=== PATIENT | female | born 1940 | race Caucasian/White ===

== ENCOUNTER 2016-04-10 19:21 | Inpatient (IN) | payer OTHER, MEDICARE ==
[~2016-04-10] VITALS: Ht 162.6 cm; Wt 76.7 kg
[~2016-04-10 19:21] MED LIST: ADVAIR 250-501 EACH INH; ATORVASTATIN CA10 M1 PO; CIPRO500 M1 PO; ELIQUIS5 M1 PO; FERROUS SULFAT325 M3 PO; FLAGYL500 MG PO; LEVSIN0.125 M1 PO; LOMOTIL 2.5-0.1 EACH PO; LOPERAMIDE2 M2 PO; NORTRIPTYLINE H25 M2 PO; PANTOPRAZOLE SO40 M1 PO; PAXIL10 M1 PO; SPIRIVA18 MCG INH; SYMBICORT 16010.2 GM INH; VALSARTAN-HCTZ1 EAC4 PO; VENTOLIN HFA18 GM INH
--- NOTE | 2016-04-10 19:29 | NUR ---
RECEIVED 75 YO FEMALE WITH HX OF COPD C/O SHORTNESS OF BREATH, STARTED THIS AM, MUCH WORSE THIS EVENING. PT REPORTS COLD SYMPTOMS SINCE FRIDAY. NO C/O CP.
--- NOTE | 2016-04-10 19:33 | NUR ---
PT ALSO REPORTS NON PRODUCTIVE COUGH
--- NOTE | 2016-04-10 19:41 | ED DYSPNEA/ASTHMA COMPLAINT ---
History of Present Illness General Chief Complaint: General Adult Stated Complaint: PT HAVING PROBLEM BREATHING Source: patient Exam Limitations: no limitations Vital Signs & Intake/Output Vital Signs & Intake/Output Vital Signs Date Time Temp Pulse Resp B/P Pulse O2 O2 Flow FiO2 Ox Delivery Rate 04/11 0401 98.1 72 24 190/80 98 Nasal 2.0L Cannula 04/10 2140 97 Nasal 2.0L Cannula 04/10 2140 97.8 77 22 178/81 97 Room Air 04/10 1956 98 Nasal 2.0L Cannula 04/10 1932 97.6 83 22 190/94 98 Room Air ED Intake and Output 04/11 0000 04/10 1200 Intake Total Output Total Balance Patient 169 lb Weight Allergies Coded Allergies: amitriptyline (From ELAVIL) (RASH 07/13/15) methylprednisolone (From MEDROL) (LIP SWELLS 07/13/15) Triage Note: RECEIVED 75 YO FEMALE WITH HX OF COPD C/O SHORTNESS OF BREATH, STARTED THIS AM, MUCH WORSE THIS EVENING. PT REPORTS COLD SYMPTOMS SINCE FRIDAY. NO C/O CP. Triage Nurses Notes Reviewed? yes Onset: Abrupt Duration: day(s): (2) Timing: multiple episodes today Severity: severe Associated Symptoms: cough (NONPRODUCTIVE) HPI: 75 year old female with history of COPD and pulmonary embolism who presents to the ER with chief complaint of shortness of breath that started yesterday. Patient states that she used her nebulizer yesterday and today with minimal relief. Also has a history of pulmonary embolism 2. Last PE was in April 2015. She stop her anticoagulation in October. They thought that the PE was secondary to immobility after: Resection surgery. She denies any fever or chills. Complains of a nonproductive cough and some anxiety. Also complains of some chest tightness. (NELLY CHUN,PASTORA) Reconcile Medications Albuterol Sulfate (Ventolin Hfa) 18 GM HFA.AER.AD 2 PUF INH PRN COPD ( Reported) Atorvastatin Calcium 10 MG TABLET 0.5 TAB PO QAM CHOLESTEROL (Reported) Budesonide/Formoterol Fumarate (Symbicort 160-4.5 Mcg Inhaler) 10.2 GM HFA.AER.AD 2 PUF INH BID COPD (Reported) Diphenoxylate HCl/Atropine (Lomotil 2.5-0.025 MG Tablet) 1 EACH TABLET 2 TAB PO TIDAC DIARRHEA (Reported) Pantoprazole Sodium 40 MG TABLET.DR 1 TAB PO QAM GI (Reported) Tiotropium [place] (Spiriva) 18 MCG CAP.W.DEV 1 CAP INH DAILY COPD (Reported) Triamterene/Hydrochlorothiazid (Triamterene-Hctz 37.5-25 MG Tb) 37.5 MG-25 MG TABLET 0.5 TAB PO DAILY HTN (Reported) (MIKE CHUN,LEONOR Gonzalez) Past History Travel History Traveled to [place] past 21 day No Medical History Any Pertinent Medical History? 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 No (PASTORA VILLEGAS MD) Review of Systems Review of Systems Constitutional: Denies: chills, fever. EENTM: Reports: no symptoms. Respiratory: Reports: cough, short of breath. Denies: sputum production. Cardiovascular: Reports: chest pain. Denies: palpitations. GI: Denies: abdominal pain. Genitourinary: Reports: no symptoms. Musculoskeletal: Reports: no symptoms. Skin: Reports: no symptoms. Neurological/Psychological: Reports: anxiety. Hematologic/Endocrine: Denies: bruising, bleeding, polyuria, polydipsia. Immunologic/Allergic: Denies: splenectomy. All Other Systems: Reviewed and Negative (PASTORA VILLEGAS MD) Physical Exam Physical Exam General Appearance: well developed/nourished, alert, awake, anxious, moderate distress Head: atraumatic, normal appearance Ears, Nose, Throat: normal pharynx, normal ENT inspection, hearing grossly normal Neck: normal inspection Respiratory: decreased breath sounds, accessory muscle use, respiratory distress , clear chest Cardiovascular: regular rate/rhythm Peripheral Pulses: 2+ radial (R), 2+ radial (L) Gastrointestinal: normal bowel sounds, soft, non-tender Extremities: normal inspection, normal capillary refill, normal range of motion Neurologic/Psych: no motor/sensory deficits, awake, alert, oriented x 3, normal gait, VERY ANXIOUS Skin: intact, normal color, warm/dry Core Measures ACS in differential dx? No Severe Sepsis Present: No Septic Shock Present: No (NELLY CHUN,PASTORA) Progress Differential Diagnosis: bronchitis, CHF, COPD, pulmonary embolism, pneumonia Plan of Care: Orders Procedure Date/time Status Heart Healthy Diet 04/11 B Active CBC WITHOUT DIFFERENTIAL 04/11 06 Active BASIC ELECTROLYTES PLUS BUN&CR 04/11 06 Active Vital Signs 04/11 0352 Active Teach/Educate 04/11 035 Active Nutritional Intake, Monitor 04/11 035 Active Isolation 04/11 035 Active Intake & Output 04/11 035 Active Patient Care Conference 04/11 0352 Active Activity/Ambulation 04/11 0352 Active TRC EVALUATION (GEN) 04/11 0223 Active Pathway - chart 04/11 0217 Active Pathway - chart 04/11 0212 Active House Staff 04/11 0212 Active Code Status 04/11 0212 Complete Code Status 04/11 0212 Active Patient Data 04/11 0136 Active Saline Lock 04/11 0104 Active Misc Message 04/11 0104 Active ED Holding Orders 04/11 0104 Active Admit to inpatient 04/11 0104 Active Vital Signs 04/11 0104 Active Code Status 04/11 0104 Complete Add-on Test (ER Only) 04/11 0103 Active URINE OSMOLALITY 04/11 0103 Active URINE CREATININE, SPOT 04/11 0103 Active URINE LYTES, SPOT 04/11 0103 Active URINALYSIS 04/11 0103 Complete VTE Mechanical Prophylaxis 04/11 UNK Active Vital Signs 04/11 UNK Active Intake & Output 04/10 1955 Active SERUM OSMOLALITY 04/10 194 Complete D-DIMER 04/10 194 Complete RT ED ORDERS 04/10 1946 Active PARTIAL THROMBOPLASTIN TIME 04/10 1946 Complete PROTHROMBIN TIME 04/10 1946 Complete TROPONIN LEVEL 04/10 1936 Complete COMPREHENSIVE METABOLIC PANEL 04/10 1936 Complete CBC WITHOUT DIFFERENTIAL 04/10 1936 Complete EKG 04/10 1924 Active Current Medications Sig/Tacos Start time Last Medication Dose Stop Time Status Admin Atorvastatin Calcium 5 MG QAM 04/11 1000 AC (Lipitor) Budesonide/ 2 PUF BID 04/11 1000 AC Formoterol Fumarate (Symbicort) Enoxaparin Sodium 40 MG DAILY 04/11 1000 AC (Lovenox) Tiotropium [place] 1 PUF DAILY 04/11 1000 AC (Spiriva) Omeprazole 40 MG DAILY AC 04/11 0700 AC (Prilosec) Acetaminophen 650 MG Q6P PRN 04/11 0230 AC (Tylenol) Morphine Sulfate 2 MG Q4P PRN 04/11 0230 AC (Morphine) Oxycodone HCl 5 MG Q6P PRN 04/11 0230 AC (Roxicodone) Laboratory Tests 04/11/16224: Urine Color STRAW, Urine Clarity CLEAR, Urine pH 7.0, Ur Specific [place] <= 1.005, Urine Protein NEG, Urine Ketones NEG, Urine Nitrite NEG, Urine Bilirubin NEG, Urine Urobilinogen 0.2, Ur Leukocyte Esterase SMALL H, Ur Microscopic SEDIMENT EXAMINED, Urine RBC 5-10 H, Urine WBC 1-3 H, Ur Epithelial Cells FEW, Urine Hemoglobin SMALL H, Urine Glucose NEG 04/10/161947: Anion Gap 15, Estimated GFR > 60, BUN/Creatinine Ratio 17.8, Glucose 148 H, Serum Osmolality 263 L, Calcium 8.6, Total Bilirubin 0.6, AST 69 H, ALT 55 H, Alkaline Phosphatase 123, Troponin I < 0.01, Total Protein 7.3, Albumin 3.9, Globulin 3.4, Albumin/Globulin Ratio 1.1, PT 10.4, INR 0.99, APTT 26, D-Dimer 1042 H, CBC w Diff NO MAN DIFF REQ, RBC 4.19 L, MCV 87.9, MCH 30.7, RDW 13.8, MPV 8.0, Gran % 53.8, Lymphocytes % 26.9, Monocytes % 18.3 H, Eosinophils % 0.2 , Basophils % 0.8, Absolute Granulocytes 1.8, Absolute Lymphocytes 0.9 L, Absolute Monocytes 0.6, Absolute Eosinophils 0, Absolute Basophils 0, PUBS MCHC 35.0 04/10/161936: D-Dimer Cancelled Diagnostic Imaging: Viewed by Me: CT Scan. Discussed w/RAD: CT Scan. Radiology Impression: PATIENT: ANDRES CRYSTAL PRESENT AGE: 75 PATIENT ACCOUNT NO: [id number] : 42 LOCATION: [facility] ORDERING PHYSICIAN: PASTORA VILLEGAS MD SERVICE DATE: 04/10/16 EXAM TYPE: CAT - CTA CHEST-PULMONARY EMBOLISM EXAMINATION: CT ANGIOGRAM OF THE CHEST WITH AND WITHOUT CONTRAST (CT PULMONARY ANGIOGRAM FOR PE) CLINICAL INFORMATION: Symptoms: RESPIRATORY DISTRESS, H/O PE X 2, COMPARISON: Chest x-ray 07/13/2015 TECHNIQUE: Prior to contrast administration, noncontrast localization images were obtained. Subsequently, multidetector volumetric imaging was performed from the thoracic inlet to below the diaphragms following the administration of 95 mL Optiray 350 intravenous contrast. No contrast reaction reported Sagittal, coronal, and MIP oblique sagittal reformatted images were obtained on the CT workstation, uploaded to PACS, and reviewed. Total exam dose-length product 559.09 mGy-cm FINDINGS: QUALITY OF STUDY/CONTRAST BOLUS: Limited. The aorta, pulmonary veins, left atrium and left ventricle densely opacified with mild opacification of the pulmonary arteries. PULMONARY ARTERIES: No central or segmental pulmonary emboli. THORACIC AORTA: No aneurysm or dissection. LUNG: No focal consolidation, nodules or masses. PLEURA: No pleural effusion or pneumothorax. MEDIASTINUM: Normal heart size. No pericardial effusion. No hilar or mediastinal lymphadenopathy. No evidence of septal bowing or right heart strain. There is mild dilatation of the distal thoracic esophagus with air -fluid level. CHEST WALL/AXILLA: No axillary or internal mammary lymphadenopathy. OSSEOUS STRUCTURES: No acute or suspicious osseous abnormality. UPPER ABDOMEN: Surgical clips at the gastroesophageal junction. There is dilatation of the distal esophagus with air-fluid level. Status post cholecystectomy. At the lowest slice image there is herniation of small bowel loop into an incisional hernia at the ventral abdomen without bowel dilatation. This is only partially imaged however. IMPRESSION: 1. No acute change. No evidence of pulmonary embolism. 2. Status post surgery at the gastroesophageal junction with dilatation of the distal thoracic esophagus. 3. Incisional hernia containing small bowel loop in the lowest slice image is partially imaged. If there is abdominal pain imaging of the abdomen and pelvis would be helpful for further evaluation. VTE: Negative. DICTATED BY: CAHNEL HAMILTON MD DATE/TIME DICTATED:04/10/162144 CAPSULE INSPECTOR:AMBER DATE/TIME TRANSCRIBED:2144 CONFIDENTIAL, DO NOT COPY WITHOUT APPROPRIATE AUTHORIZATION. < Electronically signed in Other Vendor System> SIGNED BY: CHANEL HAMILTON MD 2200 Initial ED EKG: NSR Rhythm Strip: normal sinus rhythm Hand-Off Endorsed To: MIKE CHUN,LEONOR Gonzalez Endorsed Time: 2299 Pending: CT (NELLY CHUN,PASTORA) Radiology Impression: abd/pelvic - bowel loop present... no obstruction, ct angio of chest - no PE. Comments: PATIENT: ANDRES CRYSTAL PRESENT AGE: 75 PATIENT ACCOUNT NO: [id number] : 42 LOCATION: [facility] ORDERING PHYSICIAN: PASTORA VILLEGAS MD SERVICE DATE: 04/10/16 EXAM TYPE: CAT - CTA CHEST-PULMONARY EMBOLISM EXAMINATION: CT ANGIOGRAM OF THE CHEST WITH AND WITHOUT CONTRAST (CT PULMONARY ANGIOGRAM FOR PE) CLINICAL INFORMATION: Symptoms: RESPIRATORY DISTRESS, H/O PE X 2, COMPARISON: Chest x-ray 07/13/2015 TECHNIQUE: Prior to contrast administration, noncontrast localization images were obtained. Subsequently, multidetector volumetric imaging was performed from the thoracic inlet to below the diaphragms following the administration of 95 mL Optiray 350 intravenous contrast. No contrast reaction reported Sagittal, coronal, and MIP oblique sagittal reformatted images were obtained on the CT workstation, uploaded to PACS, and reviewed. Total exam dose-length product 559.09 mGy-cm FINDINGS: QUALITY OF STUDY/CONTRAST BOLUS: Limited. The aorta, pulmonary veins, left atrium and left ventricle densely opacified with mild opacification of the pulmonary arteries. PULMONARY ARTERIES: No central or segmental pulmonary emboli. THORACIC AORTA: No aneurysm or dissection. LUNG: No focal consolidation, nodules or masses. PLEURA: No pleural effusion or pneumothorax. MEDIASTINUM: Normal heart size. No pericardial effusion. No hilar or mediastinal lymphadenopathy. No evidence of septal bowing or right heart strain. There is mild dilatation of the distal thoracic esophagus with air-fluid level. CHEST WALL/AXILLA: No axillary or internal mammary lymphadenopathy. OSSEOUS STRUCTURES: No acute or suspicious osseous abnormality. UPPER ABDOMEN: Surgical clips at the gastroesophageal junction. There is dilatation of the distal esophagus with air-fluid level. Status post cholecystectomy. At the lowest slice image there is herniation of small bowel loop into an incisional hernia at the ventral abdomen without bowel dilatation. This is only partially imaged however. IMPRESSION: 1. No acute change. No evidence of pulmonary embolism. 2. Status post surgery at the gastroesophageal junction with dilatation of the distal thoracic esophagus. 3. Incisional hernia containing small bowel loop in the lowest slice image is partially imaged. If there is abdominal pain imaging of the abdomen and pelvis would be helpful for further evaluation. VTE: Negative. DICTATED BY: CHANEL HAMILTON MD DATE/TIME DICTATED:04/10/162144 CAPSULE INSPECTOR:AMBER DATE/TIME TRANSCRIBED:04/10/162144 CONFIDENTIAL, DO NOT COPY WITHOUT APPROPRIATE AUTHORIZATION. <Electronically signed in Other Vendor System> SIGNED BY: HCANEL HAMILTON MD 04/10/162200 PATIENT: ANDRES CRYSTAL PRESENT AGE: 75 PATIENT ACCOUNT NO: [id number] : 42 LOCATION: [facility] ORDERING PHYSICIAN: PASTORA VILLEGAS MD SERVICE DATE: 04/10/16 EXAM TYPE: CAT - CT ABD & PELVIS W/O IV CONTRAS EXAMINATION: CT ABDOMEN AND PELVIS WITHOUT CONTRAST CLINICAL INFORMATION: Dyspnea. Abdominal pain. Bowel seen in the incisional hernia on recent CTA of chest COMPARISON: CT abdomen pelvis 11/02/2015. CTA of chest today TECHNIQUE: Multidetector volumetric imaging was performed from the superior aspect of the liver through the pubic symphysis. Sagittal and coronal reformatted images were obtained on the technologist's workstation. DLP: 424.76 mGy-cm. FINDINGS: LUNG BASES: The visualized lung bases are unremarkable. LIVER, GALLBLADDER, AND BILIARY TREE: The liver is normal in size, shape, and attenuation. No focal hepatic lesion or biliary ductal dilatation is present. Status post cholecystectomy. Extrahepatic CBD measures 5 mm. PANCREAS: Unremarkable. SPLEEN: Unremarkable. ADRENAL GLANDS: Unremarkable. KIDNEYS AND URETERS: Parapelvic cyst measuring 2.3 cm the midpole of right kidney. Kidneys are normal in size and contour with normal enhancement. No hydronephrosis. BLADDER: Unremarkable. GASTROINTESTINAL TRACT: There is a midline surgical incision. There is a small bowel loop which bulges into the abdominal wall the level of the incision, sagittal image 60, axial image 220 (3). This does not however cause obstruction of the bowel loop. There is no bowel obstruction. No bowel wall thickening or edema. Surgical suture line at the right colon Large volume of stool in the colon. The appendix is not seen. No inflammation the mesentery. Surgical clips at the gastroesophageal junction. ABDOMINAL WALL: No significant hernia is appreciated. LYMPH NODES: Normal. VASCULAR: Unremarkable. PELVIC VISCERA: Uterus is absent. No adnexal abnormality. OSSEOUS STRUCTURES: Degenerative vacuum disc phenomena L4-L5 L5-S1. Bridging spurs at the lower thoracic spine. Multilevel facet joint arthrosis at lower lumbar spine. IMPRESSION: There is a midline surgical incision. There is a small bowel loop which does bulge into the abdominal wall at the level of the incision, however this does not herniate through the wall and does not cause obstruction of the bowel. DICTATED BY: CHANEL HAMILTON MD DATE/TIME DICTATED:04/10/162303 CAPSULE INSPECTOR:AMBER DATE/TIME TRANSCRIBED:04/10/162303 CONFIDENTIAL, DO NOT COPY WITHOUT APPROPRIATE AUTHORIZATION. <Electronically signed in Other Vendor System> SIGNED BY: CHANEL HAMILTON MD 04/10/16 [id number] (LEONOR MCKEON MD) Departure Departure Disposition: STILL A PATIENT Condition: Stable Referrals: RUY ROJAS MD (PCP/Family) Departure Forms: Customer Survey General Discharge Information (PASTORA VILLEGAS MD) Departure Clinical Impression Primary Impression: Dyspnea Secondary Impressions: Hyponatremia Admission Note Spoke With: BIN ADAMS MD Documentation of Exam: Documentation of any treatments & extenuating circumstances including Concerns Regarding Discharge (functional status, medication knowledge or non-compliance, living conditions, etc.) that warrant an admission rather than observation: pt with hyponatremia, merits iv fluids, electrolyte evaluation.. (possible siadh given normal bun/cr?). (LEONOR MCKEON MD) Critical Care Note Critical Care Note Critical Care Time: 30-74 min (PASTORA VILLEGAS MD)
--- NOTE | 2016-04-10 19:53 | NUR ---
PLACED ON SUPPLIMENTAL O2. LUNG SOUNDS CLEAR BILATERALLY. 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 HX PE LAST YEAR, NOT ON BLOOD THINNERS. DENIES RECENT REDNESS, SWELLING OR PAIN TO EXTREMITIES. DENIES PAIN WITH INSP/EXPIRATION. C/O LOW BACK PAIN. HX COPD AND FORMER SMOKER. 18G EST TO L HAND AND LABS DRAWN AND SENT. DR VILLEGAS AT BEDSIDE FOR EVAL
[2016-04-10 20:03] LABS: ABSOLUTE BASOPHIL COUNT 0 /CUMM (0.0-0.2); ABSOLUTE EOSINOPHIL COUNT 0 /CUMM (0.0-0.7); ABSOLUTE GRANULOCYTE CT 1.8 /CUMM (1.4-6.5); ABSOLUTE LYMPH COUNT 0.9 /CUMM (1.2-3.4); ABSOLUTE MONOCYTE COUNT 0.6 /CUMM (0.10-0.60); BASOPHIL % 0.8 % (0.0-2.0); EOSINOPHIL % 0.2 % (0-5); GRANULOCYTE % 53.8 % (42.2-75.2); HEMATOCRIT 36.8 % (37-47); MEAN CORPUSCULAR HGB 30.7 PG (27.0-31.0); MEAN CORPUSCULAR VOLUME 87.9 FL (81.0-99.0); PLATELET COUNT 133 /CUMM (130-400); RBC DISTRIBUTION WIDTH 13.8 % (11.5-14.5); RED BLOOD CELL CT 4.19 /CUMM (4.20-5.40); WHITE BLOOD CELL COUNT 3.3 /CUMM (4.8-10.8)
[2016-04-10 20:14] LABS: PT 10.4 SEC (9.4-12.5); PTT 26 SEC (25-37)
--- NOTE | 2016-04-10 21:10 | NUR ---
SECOND IV ESTABLISHED. MEDICATED WITH HEPARIN BOLUS PER eMAR AND MORPHINE PER ORDER. NS IVF BOLUS RUNNING
--- NOTE | 2016-04-10 21:36 | NUR ---
PT TO AND FROM CT VIA STRETCHER
--- NOTE | 2016-04-10 21:41 | NUR ---
PT TO AND FROM CAT SCAN
--- NOTE | 2016-04-10 22:01 | CT SCAN REPORT ---
EXAMINATION: CT ANGIOGRAM OF THE CHEST WITH AND WITHOUT CONTRAST (CT PULMONARY ANGIOGRAM FOR PE) CLINICAL INFORMATION: Symptoms: RESPIRATORY DISTRESS, H/O PE X 2, COMPARISON: Chest x-ray 07/13/2015 TECHNIQUE: Prior to contrast administration, noncontrast localization images were obtained. Subsequently, multidetector volumetric imaging was performed from the thoracic inlet to below the diaphragms following the administration of 95 mL Optiray 350 intravenous contrast. No contrast reaction reported Sagittal, coronal, and MIP oblique sagittal reformatted images were obtained on the CT workstation, uploaded to PACS, and reviewed. Total exam dose-length product 559.09 mGy-cm FINDINGS: QUALITY OF STUDY/CONTRAST BOLUS: Limited. The aorta, pulmonary veins, left atrium and left ventricle densely opacified with mild opacification of the pulmonary arteries. PULMONARY ARTERIES: No central or segmental pulmonary emboli. THORACIC AORTA: No aneurysm or dissection. LUNG: No focal consolidation, nodules or masses. PLEURA: No pleural effusion or pneumothorax. MEDIASTINUM: Normal heart size. No pericardial effusion. No hilar or mediastinal lymphadenopathy. No evidence of septal bowing or right heart strain. There is mild dilatation of the distal thoracic esophagus with air-fluid level. CHEST WALL/AXILLA: No axillary or internal mammary lymphadenopathy. OSSEOUS STRUCTURES: No acute or suspicious osseous abnormality. UPPER ABDOMEN: Surgical clips at the gastroesophageal junction. There is dilatation of the distal esophagus with air-fluid level. Status post cholecystectomy. At the lowest slice image there is herniation of small bowel loop into an incisional hernia at the ventral abdomen without bowel dilatation. This is only partially imaged however. IMPRESSION: 1. No acute change. No evidence of pulmonary embolism. 2. Status post surgery at the gastroesophageal junction with dilatation of the distal thoracic esophagus. 3. Incisional hernia containing small bowel loop in the lowest slice image is partially imaged. If there is abdominal pain imaging of the abdomen and pelvis would be helpful for further evaluation. VTE: Negative.
--- NOTE | 2016-04-10 23:16 | CT SCAN REPORT ---
EXAMINATION: CT ABDOMEN AND PELVIS WITHOUT CONTRAST CLINICAL INFORMATION: Dyspnea. Abdominal pain. Bowel seen in the incisional hernia on recent CTA of chest COMPARISON: CT abdomen pelvis 11/02/2015. CTA of chest today TECHNIQUE: Multidetector volumetric imaging was performed from the superior aspect of the liver through the pubic symphysis. Sagittal and coronal reformatted images were obtained on the technologist's workstation. DLP: 424.76 mGy-cm. FINDINGS: LUNG BASES: The visualized lung bases are unremarkable. LIVER, GALLBLADDER, AND BILIARY TREE: The liver is normal in size, shape, and attenuation. No focal hepatic lesion or biliary ductal dilatation is present. Status post cholecystectomy. Extrahepatic CBD measures 5 mm. PANCREAS: Unremarkable. SPLEEN: Unremarkable. ADRENAL GLANDS: Unremarkable. KIDNEYS AND URETERS: Parapelvic cyst measuring 2.3 cm the midpole of right kidney. Kidneys are normal in size and contour with normal enhancement. No hydronephrosis. BLADDER: Unremarkable. GASTROINTESTINAL TRACT: There is a midline surgical incision. There is a small bowel loop which bulges into the abdominal wall the level of the incision, sagittal image 60, axial image 220 (3). This does not however cause obstruction of the bowel loop. There is no bowel obstruction. No bowel wall thickening or edema. Surgical suture line at the right colon Large volume of stool in the colon. The appendix is not seen. No inflammation the mesentery. Surgical clips at the gastroesophageal junction. ABDOMINAL WALL: No significant hernia is appreciated. LYMPH NODES: Normal. VASCULAR: Unremarkable. PELVIC VISCERA: Uterus is absent. No adnexal abnormality. OSSEOUS STRUCTURES: Degenerative vacuum disc phenomena L4-L5 L5-S1. Bridging spurs at the lower thoracic spine. Multilevel facet joint arthrosis at lower lumbar spine. IMPRESSION: There is a midline surgical incision. There is a small bowel loop which does bulge into the abdominal wall at the level of the incision, however this does not herniate through the wall and does not cause obstruction of the bowel.
--- NOTE | 2016-04-11 01:20 | History & Physical ---
RON CHUN,DIEGO 04/11/16 0120: General Information and HPI MD Statement: I have seen and personally examined ANDRES CRYSTAL and documented this H&P. The patient is a 75 year old F who presented with a patient stated chief complaint of [Shortness of breath]. Source of Information: patient, old records, EMS Exam Limitations: no limitations History of Present Illness: Patient is a 75-year-old female with past medical history significant for COPD, pulmonary embolus twice, hypertension, hyperlipidemia, GERD, colon cancer, small bowel obstruction (status post colectomy twice in 02/2014, 04/2015) came to the ER today with progressively worsening shortness of breath. Patient had intermittent shortness of breath for the past couple of months. For the past 2 days she had cough and increased shortness of breath. She was prescribed Mucinex by her PCP which was partially helpful. However today her dyspnea got much worse, even after using albuterol inhaler thrice. Eventually she came to ER for further evaluation. In ER she reports feeling lightheaded and dizzy. Patient had chronic diarrhea after her colectomy in April 2015 with an average of 1-3 bowel movements per day. She has been drinking lots of water and Gatorade to compensate her fluid losses. Off note: Patient had pulmonary embolus twice in the past. Once in 1968 while she is on OCP. Second PE after colectomy in April 2015 which was most probably due to immobilization. She was started on Eliquis after the second PE which was recently stopped at the end of November 2015. Given history of PE today with suspected recurrent PE as she had d-dimer of 500s , however CD8, CT abdomen/pelvis are negative. Allergies/Medications Allergies: Coded Allergies: amitriptyline (From ELAVIL) (RASH 07/13/15) methylprednisolone (From MEDROL) (LIP SWELLS 07/13/15) Home Med list Albuterol Sulfate (Ventolin Hfa) 18 GM HFA.AER.AD 2 PUF INH PRN COPD ( Reported) Atorvastatin Calcium 10 MG TABLET 0.5 TAB PO QAM CHOLESTEROL (Reported) Budesonide/Formoterol Fumarate (Symbicort 160-4.5 Mcg Inhaler) 10.2 GM HFA.AER.AD 2 PUF INH BID COPD (Reported) Diphenoxylate HCl/Atropine (Lomotil 2.5-0.025 MG Tablet) 1 EACH TABLET 2 TAB PO TIDAC DIARRHEA (Reported) Pantoprazole Sodium 40 MG TABLET. 1 TAB PO QAM GI (Reported) Tiotropium [place] (Spiriva) 18 MCG CAP.W.DEV 1 CAP INH DAILY COPD (Reported) Triamterene/Hydrochlorothiazid (Triamterene-Hctz 37.5-25 MG Tb) 37.5 MG-25 MG TABLET 0.5 TAB PO DAILY HTN (Reported) Compliance With Home Meds: UNKNOWN Past History Travel History Traveled to [place] past 21 day No Medical History Neurological: NONE EENT: NONE Cardiovascular: hypertension, hyperlipidemia Respiratory: COPD, pulmonary embolism Gastrointestinal: GERD, colon cancer SBO Hepatic: NONE Renal: NONE Musculoskeletal: NONE Psychiatric: NONE Endocrine: NONE Blood Disorders: PE Cancer(s): COLON CA GANG SAWYER/Reproductive: NONE History of MRSA: No History of VRE: No History of CDIFF: No Surgical History Surgical History: colectomy, hysterectomy, cholecystectomy HIATAL HERNIA REPAIR ARTHROSCOPY OF KNEE BILATERAL CATARACTS CARPAL TUNNEL SURGERY COLON RESECTION 2015 Past Family/Social History Family History Relations & Conditions if any MOTHER FH: colon cancer FATHER FH: CAD (coronary artery disease) Psychosocial History Where do you live? Home Who Do You Live With? significant other Services at Home: None Smoking Status: Former Smoker ETOH Use: occasional use Illicit Drug Use: denies illicit drug use Living Will? yes Power of Pattern Painter/HCP? unknown Functional Ability ADLs Independent: dressing, eating, toileting, bathing. Ambulation: independent IADLs Independent: shopping, housework, finances, food prep, telephone, transportation , medication admin. Review of Systems Review of Systems Constitutional: Reports: see HPI, malaise, weakness. EENTM: Reports: see HPI. Respiratory: Reports: see HPI, cough, short of breath, sputum production. GI: Reports: see HPI, bloating, diarrhea. Genitourinary: Reports: no symptoms. Musculoskeletal: Reports: no symptoms. Skin: Reports: no symptoms. Neurological/Psychological: Reports: no symptoms. Hematologic/Endocrine: Reports: no symptoms. Immunologic/Allergic: Reports: no symptoms. All Other Systems: Reviewed and Negative Exam & Diagnostic Data Last 24 Hrs of Vital Signs/I&O Vital Signs Date Time Temp Pulse Resp B/P Pulse O2 O2 Flow FiO2 Ox Delivery Rate 01/19 0751 Nasal 2.0L Cannula 04/11 0748 98 Nasal 2.0L Cannula 04/11 0653 97.9 68 20 140/70 98 Nasal 2.0L Cannula 04/11 0417 72 24 190/80 04/11 0401 98.1 72 24 190/80 98 Nasal 2.0L Cannula 04/11 0343 98 Nasal 2.0L Cannula 04/10 2140 97 Nasal 2.0L Cannula 04/10 2140 97.8 77 22 178/81 97 Room Air 04/10 1956 98 Nasal 2.0L Cannula 04/10 1932 97.6 83 22 190/94 98 Room Air Intake & Output 04/11 1600 04/11 0800 04/11 0000 Intake Total 210 Output Total Balance 210 Intake, IV 10 Intake, Oral 200 Number 0 Bowel Movements Patient 76.657 kg 76.657 kg Weight Physical Exam General Appearance Alert, Oriented X3, Cooperative, Mild Distress Skin No Rashes, No Breakdown HEENT Atraumatic, PERRLA, EOMI Neck Supple, No JVD Cardiovascular Regular Rate, Normal S1, Normal S2, No Murmurs Lungs Clear to Auscultation, Normal Air Movement Abdomen Normal Bowel Sounds, No Tenderness, distended Neurological Normal Speech, Strength at 5/5 X4 Ext, Normal Tone Extremities No Clubbing, No Cyanosis, No Edema Vascular Pulses Symmetrical Last 24 Hrs of Labs/Mainor: Laboratory Tests 04/11/16224: Urine Color STRAW, Urine Clarity CLEAR, Urine pH 7.0, Ur Specific [place] <= 1.005, Urine Protein NEG, Urine Ketones NEG, Urine Nitrite NEG, Urine Bilirubin NEG, Urine Urobilinogen 0.2, Ur Leukocyte Esterase SMALL H, Ur Microscopic SEDIMENT EXAMINED, Urine RBC 5-10 H, Urine WBC 1-3 H, Ur Epithelial Cells FEW, Urine Hemoglobin SMALL H, Urine Glucose NEG 04/11/16224: Urine Osmolality 160 L, Ur Random Creatinine 14.2, Ur Random Sodium 36, Ur Random Potassium 8.9, Fraction Sodium Excret 1.9 H 04/10/161947: Anion Gap 15, Estimated GFR > 60, BUN/Creatinine Ratio 17.8, Glucose 148 H, Serum Osmolality 263 L, Calcium 8.6, Total Bilirubin 0.6, AST 69 H, ALT 55 H, Alkaline Phosphatase 123, Troponin I < 0.01, Total Protein 7.3, Albumin 3.9, Globulin 3.4, Albumin/Globulin Ratio 1.1, PT 10.4, INR 0.99, APTT 26, D-Dimer 1042 H, CBC w Diff NO MAN DIFF REQ, RBC 4.19 L, MCV 87.9, MCH 30.7, RDW 13.8, MPV 8.0, Gran % 53.8, Lymphocytes % 26.9, Monocytes % 18.3 H, Eosinophils % 0.2 , Basophils % 0.8, Absolute Granulocytes 1.8, Absolute Lymphocytes 0.9 L, Absolute Monocytes 0.6, Absolute Eosinophils 0, Absolute Basophils 0, PUBS MCHC 35.0 04/10/161936: D-Dimer Cancelled Diagnostic Data EKG Results normal sinus rhythm with heart rate of 80, normal axis, no acute ST-T wave changes, QTC of 471. Other Results CT angiogram IMPRESSION: 1. No acute change. No evidence of pulmonary embolism. 2. Status post surgery at the gastroesophageal junction with dilatation of the distal thoracic esophagus. 3. Incisional hernia containing small bowel loop in the lowest slice image is partially imaged. If there is abdominal pain imaging of the abdomen and pelvis would be helpful for further evaluation. VTE: Negative. Assessment/Plan Assessment: Patient is a 75-year-old female with past medical history significant for COPD, pulmonary embolus twice, hypertension, hyperlipidemia, GERD, colon cancer, small bowel obstruction (status post colectomy twice in 02/2014, 04/2015) came to the ER today with progressively worsening shortness of breath. Off note: Patient had pulmonary embolus twice in the past. Once in 1968 while she is on OCP. Second PE after colectomy in April 2015 which was most probably due to immobilization. She was started on Eliquis after the second PE which was recently stopped at the end of November 2015. ER course Vital signs Temperature max of 97.6, pulse 77, blood pressure 178/81 mmHg, on 2 L nasal cannula. Significant labs include Pancytopenia with white count of 3.3, H&H of 12.9/36.8, platelet count of 133 Hyponatremia with sodium of 121 Potassium 3.9, creatinine 0.9 CT abdomen and pelvis and CT chest negative for any PE Midline surgical incision with palpable penetration without any visible herniation patient received 1 L of normal saline bolus along with albuterol and ipratropium inhalers in the ER Admitted to general medicine floor Plan Hypovolemic hyponatremia in the setting of dehydration secondary to diarrhea and thiazide intake * Sodium level of 121 * Appears secondary to dehydration * Holding thiazide and gentle hydration * Continue IV fluids with normal saline @75ml/hr * Daily BEP with sodium monitoring * Consider nephro consult History of colon cancer underwent colectomy * Midline incision present * CT abdomen and pelvis shows bilateral penetration through the incision without any herniation * Chronic diarrhea status post colectomy * Consider surgery/GI consult as per primary team discussion pulmonary embolus * Negative CTA with d-dimer level of 1042 * History of pulmonary embolus twice in the past History of hypertension * On hydrochlorothiazide/triamterene combination at home * currently on hold in view of hyponatremia and dehydration * Consider amlodipine 5 mg for now Transaminitis * AST/ALT 69/55 * ALP normal * Repeat LFTs in the a.m. * Secondary to dehydration DVT prophylaxis * Subcutaneous Lovenox CODE STATUS * DNR/DNI As Ranked By This Provider Problem List: 1. Small bowel obstruction 2. HTN (hypertension) 3. Diarrhea 4. Dyspnea 5. Hyponatremia Core Measures/Miscellaneous Acute Coronary Syndrome ACS Diagnosis: No Cerebrovascular Accident CVA/TIA Diagnosis: No Congestive Heart Failure CHF Diagnosis: No Venous Thromboembolism VTE Risk Factors: Immobility, paresis VTE Prophylaxis Ordered Inpt: Pharm- Lovenox No Mech VTE prophylaxis d/t: No contraindications No VTE Pharm Prophylaxis d/t: No contraindications VTE Diagnosis: No VTE Type: NONE VTE Confirmed by (Test): NONE Severe Sepsis Severe Sepsis Present: No Septic Shock Septic Shock Present: No Miscellaneous Documentation Attending Case Discussed With: BIN ADAMS MD Primary Care Physician: RUY ROJAS MD Patient sees these Specialists None Level of Patient Care: General Medicine JINA CHAPMAN MD 04/11/16 0401: Resident Review Statement Resident Statement: examined this patient, discussed with internal affairs investigator, agreed with internal affairs investigator, reviewed EMR data (avail) (he is), discussed with nursing, reviewed images, amended to note Other Findings: This is 75 year female with past medical history of COPD not on home O2 or prednisone, hypertension, hyperlipidemia, PE 2 with most recent PE in April 2015 after she underwent surgery for colon cancer, history of SBO, colon cancer status post colectomy 2 in 02/2014 and 04/2015 was on anticoagulation Eliquis which was stopped in November 2015 after completing 6 months course of anticoagulation for provoked PE presented to ER with chief complaint of worsening shortness of breath for 1 day associated with lightheadedness. Patient has been having on and off shortness of breath for past few months which she attributed to her baseline COPD but for past 2 days her shortness of breath has progressed. She was evaluated by her PCP 2 days prior to admission for cold and dry cough and was prescribed codeine cough syrup and Mucinex which help her with cough symptoms. On the day of admission patient started getting more short of breath tried albuterol inhaler 3 times without any significant with chief and that point she decided to come to ER for further evaluation. She denies any fever, productive cough, sore throat, sick contacts, recent travel, chest pain, palpitation or any new medications. She has been having diarrhea since she had colectomy in April 2015 and has intermittent 2-3 watery bowel movement for past few months. She denies any change in diarrhea recently. Her vitals on admission were T 97.6, HR 83, RR 22, BP 190/94, O2 sat 97% on 2 L On physical exam patient is alert oriented 3 in no acute distress, noted hard of hearing, neck supple without JVD, HEENT PERRLA EOMI, and heart S1-S2 normal without murmur, lungs clear on auscultation, abdomen soft nontender nondistended with preserved bowel sounds, no focal neuro deficit. Labs revealed the previously 3.3, H&H 12.9/36.8, platelet 133, sodium 121 ( baseline sodium 135 in February 2016) K3.9, BUN 16, creatinine 0.9, serum osmolality 263, AST 69, ALT 55, negative troponin, INR 0.99, d-dimer 1042 CTA chest did not reveal any evidence of pulmonary embolism CT abdomen pelvis revealed small bowel loop bulge into the abdominal wall at the incision surgical site UA noted with small leukocyte esterase WBC of 23, RBC 5-10 Urine osmolarity pending EKG revealed normal sinus rhythm with heart rate of 80, normal axis, no acute ST -T wave changes, QTC of 471. Assessment: 1. Hyponatremia likely in setting of dehydration secondary to diarrhea and diuretic use 2. Hypertension 3. COPD Plan: Admit to general medicine floor Gentle IV hydration Hold diuretic Repeat sodium level in a.m. TRC Start amlodipine 5 mg daily for blood pressure control DVT prophylaxis with Lovenox Pain pathway DNR/DNI BIN ADAMS 04/11/16 0655: Attending MD Review Statement Attending Statement Attending MD Statement: examined this patient, discuss w/resident/PA/OCCUP THER, agreed w/resident/PA/OCCUP THER, reviewed EMR data (avail), reviewed images, amended to note Attending Assessment/Plan: CC: Shortness of breath since 2 days PMH: COPD, recurrent PE (patient stopped taking anticoagulation in October/ November 2015 for PE being provoked after surgery), HTN, HLD, GERD, colon cancer S/P colectomy Patient presented with acute worsening of shortness of breath for 2 day duration. She had wet cough without much sputum production, URI congestion. Patient has been using increased inhalation at home, Mucinex D, codeine without much relief. She denies any fever, chills, sick contacts, nausea, vomiting, loss of consciousness, chest pain, palpitations. Since her surgery, patient has been having chronic diarrhea, not increased in frequency recently. she gets 2-3 watery bowel movements every day, she had been taking Imodium for this diarrhea. Vitals: Afebrile, heart rate in 70s. Tachypneic with respiratory rate 22-24, hypertensive with blood pressure 190/90, saturating 98% on 2 L NC. On exam: A O Clear to auscultate. Abdomen: Midline incision, incisional hernia, bowel sounds present, no guarding rigidity. No dependent edema. No focal neurological deficit. Labs: Sodium decreased to 121 from 135 done in February 2016, bicarbonate 19, anion gap 15, AST 69, ALT 55, alkaline phosphatase 123 otherwise BMP and LFT unremarkable, UA positive for leukocyte esterase. D-dimer 1042. Troponin T less than 0.01. CT abdomen and pelvis and CT chest : Midline surgical incision, small bowel loop which does bulge in abdominal wall at the level of incision however no evidence of obstruction. No acute pulmonary changes, no evidence of pulmonary embolism, status post surgery as gastroesophageal junction with dilated distal thoracic esophagus A&P: #1 hyponatremia: This appears more euvolemic hyponatremia, urine studies won't be beneficial at this point as patient is on by mouth diuretic. Even though patient has history of chronic diarrhea, her recent sodium up till February was normal. ? SIADH versus volume loss in GI in addition to by mouth diuretic, try gentle hydration with normal saline at 75 per hour, repeat sodium in 4 hours, if trending up then continue hydration, if not then fluid restriction. Consult nephrology in a.m. #2 acute shortness of breath: CTA is negative for PE, no evidence of pneumonia, patient is afebrile, probably upper respiratory congestion, and terbutaline to mild COPD exacerbation, continue IV steroids, nebulization, Mucinex, nasal spray saline, O2 by nasal cannula if required. #3 HTN: d/c hctz/triamterene combination, resume amlodipine 5 mg, closely monitor blood pressure to titrate up the dose. #4 inform surgery for incisional hernia and patient being hospitalized. #5 metabolic acidosis : Unclear etiology, and and Normal, continue gentle hydration. #6 transaminitis: Alkaline phosphatase normal, no Valle sign, repeat LFT in a.m. #7 UA positive for leukocyte esterase, patient is asymptomatic, no history of diabetes, I would not treat this with antibiotics. #8 Lovenox for DVT prophylaxis; adequate pain control
[2016-04-11] MEDS ORDERED: TRIAMTERENE-HC1 EAC1 PO (02:11)
--- NOTE | 2016-04-11 02:13 | NUR ---
HOUSE STAFF AT BEDSIDE
--- NOTE | 2016-04-11 02:21 | NUR ---
Emergency Dept UC Admit Note: To be admitted to [facility] by DR. ADAMS with HYPONATREMIA as the diagnosis, to [id number]. Nursing Realtime Captioner and admitting notified 04/11/16 at 0157
--- NOTE | 2016-04-11 02:33 | NUR ---
PT MEDICATED WITH NS INFUSING AT 75MLS/HR PER EMAR
--- NOTE | 2016-04-11 02:41 | NUR ---
REPORT GIVEN TO AIYANA EDWARDS
[2016-04-11 04:01] VITALS: BP 190/80
--- NOTE | 2016-04-11 04:33 | NUR ---
REPORT RECEIVED FROM AIYANA PETERS. PT ARRIVED TO FLOOR VIA WHEELCHAIR AT 0343. PT IS TACHYPNEIC RR 24, SOB ON 2L NC, O2 SAT 98%. SHAKINESS OF UPPER EXTREMITIES NOTED, PT C/O HEADACHE, BP 190/80, HR 72. IV FLUIDS STOPPED. ALETHEA LOZOYA MD PAGED AND MADE AWARE OF SYMPTOMS. PER MD KEEP FLUIDS STOPPED FOR NOW AND GIVE TYLENOL AND ONE TIME DOSE OF AMLOPIDINE. MEDS GIVEN. PT ORIENTED TO ROOM AND CALL MANUEL CANNON. WILL FOLLOW UP AND RECHECK BP WITHIN 45 MINUTES.
[2016-04-11 06:53] VITALS: BP 140/70
--- NOTE | 2016-04-11 06:57 | Admission Certification ---
Admission Certification Certification Statement - As attending physician, I certify that at the time of - admission, based on clinical presentation, severity of - symptoms, need for further diagnostic testing and - therapeutic interventions, and risk of adverse outcomes - without in-hospital treatment, in my clinical assessment, - this patient requires an acute hospital stay for a minimum - of two nights or longer. I have also considered psychsocial - factors such as support system, advanced age, financial - issues, cognitive issues, and failed out-patient treatments, - past re-admission history, safety of patient, and lack of - compliance as applicable. Specific rationale supporting this admission is: Hyponatremia
[2016-04-11 15:24] VITALS: BP 130/80
[2016-04-11 15:55] LABS: ABSOLUTE BASOPHIL COUNT 0 /CUMM (0.0-0.2); ABSOLUTE EOSINOPHIL COUNT 0 /CUMM (0.0-0.7); ABSOLUTE GRANULOCYTE CT 2.2 /CUMM (1.4-6.5); ABSOLUTE LYMPH COUNT 0.9 /CUMM (1.2-3.4); ABSOLUTE MONOCYTE COUNT 0.6 /CUMM (0.10-0.60); BASOPHIL % 0.6 % (0.0-2.0); EOSINOPHIL % 0.1 % (0-5); GRANULOCYTE % 59.5 % (42.2-75.2); HEMATOCRIT 36.5 % (37-47); MEAN CORPUSCULAR HGB 30.9 PG (27.0-31.0); MEAN CORPUSCULAR HGB CONC 34.4 G/DL (33.0-37.0); MEAN CORPUSCULAR VOLUME 89.9 FL (81.0-99.0); MEAN PLATELET VOLUME 8.3 FL (7.4-10.4); PLATELET COUNT 144 /CUMM (130-400); RBC DISTRIBUTION WIDTH 13.8 % (11.5-14.5); RED BLOOD CELL CT 4.06 /CUMM (4.20-5.40); WHITE BLOOD CELL COUNT 3.7 /CUMM (4.8-10.8)
--- NOTE | 2016-04-11 17:22 | PN- Att Addend ---
Attending Addendum Attending Brief Note Patient seen and examined. Sitting comfortably in her chair not in acute distress. Denies nausea vomiting. Denies diarrhea. Eating her meals with no complaints. Vital Signs Date Time Temp Pulse Resp B/P Pulse O2 O2 Flow FiO2 Ox Delivery Rate 04/11 1524 97.6 74 20 130/80 99 04/11 1032 70 124/74 04/11 0800 98 Nasal 1.0L Cannula 04/11 0751 Nasal 2.0L Cannula 04/11 0748 98 Nasal 2.0L Cannula 04/11 0653 97.9 68 20 140/70 98 Nasal 2.0L Cannula 04/11 0417 72 24 190/80 04/11 0401 98.1 72 24 190/80 98 Nasal 2.0L Cannula 04/11 0343 98 Nasal 2.0L Cannula 04/10 2140 97 Nasal 2.0L Cannula 04/10 2140 97.8 77 22 178/81 97 Room Air 04/10 1956 98 Nasal 2.0L Cannula 04/10 193 97.6 83 22 190/94 98 Room Air Gen. appearance: Well-developed, not in acute distress Heart: S1-S2 regular Lungs: Clear bilaterally Abdomen: Soft, nontender with normal bowel sounds Extremities: No pedal edema Skin: Intact with no rashes Laboratory Tests 04/11/16 1351: Triglycerides 143, Cholesterol 114, LDL Cholesterol, Calc 44 L, HDL Cholesterol 42, Cholesterol/HDL Ratio 3 04/11/16 1351: Anion Gap 11, Estimated GFR > 60, BUN/Creatinine Ratio 15.6, CBC w Diff NO MAN DIFF REQ, RBC 4.06 L, MCV 89.9, MCH 30.9, RDW 13.8, MPV 8.3, Gran % 59.5, Lymphocytes % 24.8, Monocytes % 15.0 H, Eosinophils % 0.1, Basophils % 0.6, Absolute Granulocytes 2.2, Absolute Lymphocytes 0.9 L, Absolute Monocytes 0.6, Absolute Eosinophils 0, Absolute Basophils 0, PUBS MCHC 34.4, Hepatitis A IgM Ab Pending, Hep Bs Antigen Pending, Hep B Core IgM Ab Conf Pending, Hepatitis C Antibody Pending 04/11/16 1016: Triglycerides Cancelled, Cholesterol Cancelled, LDL Cholesterol, Calc Cancelled, HDL Cholesterol Cancelled, Cholesterol/HDL Ratio Cancelled, Hepatitis A IgM Ab Cancelled, Hep Bs Antigen Cancelled, Hep B Core IgM Ab Conf Cancelled, Hepatitis C Antibody Cancelled 04/11/16 0947: Hepatitis A IgM Ab Cancelled, Hep Bs Antigen Cancelled, Hep B Core IgM Ab Conf Cancelled, Hepatitis C Antibody Cancelled 04/11/16224: Urine Color STRAW, Urine Clarity CLEAR, Urine pH 7.0, Ur Specific [place] <= 1.005, Urine Protein NEG, Urine Ketones NEG, Urine Nitrite NEG, Urine Bilirubin NEG, Urine Urobilinogen 0.2, Ur Leukocyte Esterase SMALL H, Ur Microscopic SEDIMENT EXAMINED, Urine RBC 5-10 H, Urine WBC 1-3 H, Ur Epithelial Cells FEW, Urine Hemoglobin SMALL H, Urine Glucose NEG 04/11/16224: Urine Osmolality 160 L, Ur Random Creatinine 14.2, Ur Random Sodium 36, Ur Random Potassium 8.9, Fraction Sodium Excret 1.9 H 04/10/161947: Anion Gap 15, Estimated GFR > 60, BUN/Creatinine Ratio 17.8, Glucose 148 H, Serum Osmolality 263 L, Calcium 8.6, Total Bilirubin 0.6, AST 69 H, ALT 55 H, Alkaline Phosphatase 123, Troponin I < 0.01, Total Protein 7.3, Albumin 3.9, Globulin 3.4, Albumin/Globulin Ratio 1.1, PT 10.4, INR 0.99, APTT 26, D-Dimer 1042 H, CBC w Diff NO MAN DIFF REQ, RBC 4.19 L, MCV 87.9, MCH 30.7, RDW 13.8, MPV 8.0, Gran % 53.8, Lymphocytes % 26.9, Monocytes % 18.3 H, Eosinophils % 0.2 , Basophils % 0.8, Absolute Granulocytes 1.8, Absolute Lymphocytes 0.9 L, Absolute Monocytes 0.6, Absolute Eosinophils 0, Absolute Basophils 0, PUBS MCHC 35.0 04/10/161936: D-Dimer Cancelled Problems: 1. Hyponatremia; likely secondary to losses from chronic diarrhea since surgery confounded by her blood diuretic therapy. Sodium level has improved with hydration 2. Shortness of breath; resolved. Pulmonary embolism ruled out. No evidence of COPD exacerbation at present. 3. Transaminitis; asymptomatic. No hepatobiliary disease noted on CT scan. Patient is status post cholecystectomy. She is on potentially hepatotoxic medications with statin therapy and PPI. 4. Hypertension. Blood pressure has been increasing while in hospital. Plan: -Continue IV hydration. Discontinue diuretic therapy upon discharge. -Discontinue PPI and statin therapy. Repeat LFTs in a.m. Recommend outpatient monitoring of her LFTs. Follow viral hepatitis panel. -Patient has been started on amlodipine for blood pressure control. Will titrate as needed. -Anticipate discharge in 24 hours his sodium level continues to improve and patient remains asymptomatic. -Please notify her surgeon of admission.
[2016-04-11 22:38] VITALS: BP 132/60
--- NOTE | 2016-04-12 03:38 | PN- Housestaff ---
YAHIR CHUN,BRIAN 04/12/16 0338: Subjective Follow-up For: COPD exacerbation Hyponatremia Subjective: Patient seen and examined at bedside. She is resting comfortably in bed. Reports improvement in cough and shortness of breath. Patient reports diarrhea intermittently. She takes imodium at home and agrees to resuming it while inpatient. Patient also has hot flashes with paresthesia in her feet once in awhile. No events repoted overnight. Review of Systems Constitutional: Reports: see HPI. Objective Last 24 Hrs of Vital Signs/I&O Vital Signs Date Time Temp Pulse Resp B/P Pulse O2 O2 Flow FiO2 Ox Delivery Rate 04/12 0639 97.5 82 20 150/80 98 Room Air 04/12 0534 69 170/90 04/12 0512 98 Room Air 04/12 0012 94 Room Air 04/12 0000 94 Room Air 04/11 2238 98.3 77 20 132/60 99 Nasal Cannula 04/11 2007 97 Room Air 04/11 1524 97.6 74 20 130/80 99 04/11 1032 70 124/74 Intake & Output 04/12 1600 04/12 0800 04/12 0000 Intake Total 840 1400 Output Total Balance 840 1400 Intake, IV 600 600 Intake, Oral 240 800 Number 0 Bowel Movements Physical Exam General Appearance: Alert, Oriented X3, Cooperative, No Acute Distress Other Physical Findings: Skin No Rashes, No Breakdown HEENT Atraumatic, PERRLA, EOMI Neck Supple, No JVD Cardiovascular Regular Rate, Normal S1, Normal S2, No Murmurs Lungs Clear to Auscultation, Normal Air Movement Abdomen Normal Bowel Sounds, No Tenderness, distended Neurological Normal Speech, Strength at 5/5 X4 Ext, Normal Tone Extremities No Clubbing, No Cyanosis, No Edema Vascular Pulses Symmetrical Current Medications: Current Medications Sig/Tacos Start time Last Medication Dose Route Stop Time Status Admin Acetaminophen 650 MG Q6P PRN 04/11 0230 AC 04/11 PO 0405 Albuterol Sulfate 3 ML Q4H PRN 04/11 0800 AC 04/12 INH 0510 Amlodipine Besylate 5 MG ONCE ONE 04/12 0530 DC 04/12 PO 04/12 0531 0534 Amlodipine Besylate 5 MG DAILY 04/11 1000 AC 04/11 PO 1032 Atorvastatin Calcium 5 MG QAM 04/11 1000 CAN PO Budesonide/ 2 PUF BID 04/11 1000 AC 04/11 Formoterol Fumarate INH 2121 Capsaicin 1 KRISHAN Q6P PRN 04/11 1315 DC 04/11 TOP 2120 Diclofenac Sodium See Dose 4 TIMES/DAY PRN 04/12 0830 AC Insts (1) TOP Enoxaparin Sodium 40 MG DAILY 04/11 1000 AC 04/11 SC 0904 Gabapentin 100 MG Q8 04/12 1400 AC PO Gabapentin 100 MG Q12 04/11 1308 DC 04/11 PO 2118 Guaifenesin 600 MG Q12 04/11 1000 AC 04/11 PO 2118 Loperamide HCl 2 MG Q12 PRN 04/12 1000 AC PO Loperamide HCl 2 MG Q8 04/12 0818 DC PO Morphine Sulfate 2 MG Q4P PRN 04/11 0230 DC IV Omeprazole 40 MG DAILY AC 04/11 0700 DC 04/11 PO 0653 Oxycodone HCl 5 MG Q6P PRN 04/11 0230 DC PO Patient Medication 1 ED .STK-MED ONE 04/11 1400 ME Teaching ED 04/11 1401 Patient Medication 1 UNIT ONE NR 04/11 0345 ME Teaching ED 04/12 0344 Patient Medication 1 UNIT ONE NR 04/11 0345 DC 04/11 Teaching ED 04/12 0344 2119 Sodium Chloride 2 SPRAY Q4P PRN 04/11 0545 04/11 ILDEFONSO 2118 Sodium Chloride 1,000 ML .[id number] 04/11 0215 04/11 IV 2121 Tiotropium Tyler 1 PUF DAILY 04/11 1000 AC 04/11 INH 0905 Dose Instructions: (1)Diclofenac Sodium: 2 GRAMS Last 24 Hrs of Lab/Mainor Results Last 24 Hrs of Labs/Mics: Laboratory Tests 04/12/16 0640: Sodium Pending, Potassium Pending, Chloride Pending, Carbon Dioxide Pending, Anion Gap Pending, BUN Pending, Creatinine Pending, BUN/Creatinine Ratio Pending , Total Bilirubin Pending, Direct Bilirubin Pending, AST Pending, ALT Pending, Alkaline Phosphatase Pending, Total Protein Pending, Albumin Pending 04/11/16 1351: Triglycerides 143, Cholesterol 114, LDL Cholesterol, Calc 44 L, HDL Cholesterol 42, Cholesterol/HDL Ratio 3 04/11/16 1351: Anion Gap 11, Estimated GFR > 60, BUN/Creatinine Ratio 15.6, CBC w Diff NO MAN DIFF REQ, RBC 4.06 L, MCV 89.9, MCH 30.9, RDW 13.8, MPV 8.3, Gran % 59.5, Lymphocytes % 24.8, Monocytes % 15.0 H, Eosinophils % 0.1, Basophils % 0.6, Absolute Granulocytes 2.2, Absolute Lymphocytes 0.9 L, Absolute Monocytes 0.6, Absolute Eosinophils 0, Absolute Basophils 0, PUBS MCHC 34.4, Hepatitis A IgM Ab Pending, Hep Bs Antigen Pending, Hep B Core IgM Ab Conf Pending, Hepatitis C Antibody Pending 04/11/16 1016: Triglycerides Cancelled, Cholesterol Cancelled, LDL Cholesterol, Calc Cancelled, HDL Cholesterol Cancelled, Cholesterol/HDL Ratio Cancelled, Hepatitis A IgM Ab Cancelled, Hep Bs Antigen Cancelled, Hep B Core IgM Ab Conf Cancelled, Hepatitis C Antibody Cancelled 04/11/16 0947: Hepatitis A IgM Ab Cancelled, Hep Bs Antigen Cancelled, Hep B Core IgM Ab Conf Cancelled, Hepatitis C Antibody Cancelled Assessment/Plan Assessment: 75-year-old female with past medical history significant for COPD, pulmonary embolus twice, hypertension, hyperlipidemia, GERD, colon cancer, small bowel obstruction (status post colectomy twice in 02/2014, 04/2015) who presented with progressively worsening shortness of breath. # Hypovolemic hyponatremia Most likely 2/2 dehydration in the setting of diarrhea and thiazide use. Patient 's sodium level on admission was found to be 121. Patient was started on IV resuscitation with NS. Repeat BEP showed an improvement in sodium to 129. * Discontinue thiazide permanently. * Daily BEP with sodium monitoring - 140 today * Discontinue IV fluids # History of colon cancer s/p colectomy CT abdomen and pelvis only remarkable for bilateral penetration through the incision without any herniation. 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 * Notify Dr. Piña about the admission * Start and discharge on Imodium 2mg PO Q6P after diarrhea # H/o pulmonary embolus Patient carries a history of pulmonary embolus twice in the past. On this admission CTA is unremarkable with d-dimer level of 1042. * Currently HDS # History of hypertension Patient has recently been started on hydrochlorothiazide/triamterene by PCP. This has been held and replaced with Norvasc to which patient's BP responded well. * Discontinue HCTZ permanently. * Continue amlodipine 5 mg PO daily # Transaminitis Patient came in with AST/ALT of 69/55. ALP normal. May be 2/2 dehydration vs. medication induced. * Repeat LFTs - trending down # DVT prophylaxis * Subcutaneous Lovenox # CODE STATUS * DNR/DNI Problem List: 1. HTN (hypertension) 2. Diarrhea 3. Dyspnea 4. Hyponatremia Pain Ratin Pain Location: Lower back Pain Goal: Remain pain free Pain Plan: Voltargen gel and Tylenol Tomorrow's Labs & Rationales: BEP to monitor Na for hyponatremia MAXWELL CHUN,ALICIABEVERLEYAARTI 04/12/16 1231: Attending MD Review Statement Attending Statement Attending MD Statement: examined this patient, discuss w/resident/PA/GOVERNMENT AFFAIRS FELLOW, agreed w/resident/PA/GOVERNMENT AFFAIRS FELLOW, reviewed EMR data (avail), discussed with nursing, discussed with case mgmt, amended to note Attending Assessment/Plan: Patient seen and examined. Resting comfortably and not in acute distress. No issues overnight. We ambulated on the medical unit with the patient she had no complaints of chest pain or shortness of breath. She reports a mild nonproductive cough. She does admit to mild postnasal drip. She is afebrile hemodynamically stable. Her chest x-ray shows no acute pathology. Her lungs are clear to auscultation bilaterally. She shows no evidence of volume overload. Her cough is likely secondary to her mild postnasal drip. Her sodium level has improved significantly this morning. Hyponatremia was likely secondary to her ongoing GI losses and diuretic therapy. 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 She has been advised to continue her Imodium and cholestyramine therapy at home which she reports does help with diarrhea. Has been advised to stay well hydrated and diuretic therapy has been discontinued. Her blood pressure is improved with the addition of amlodipine to her regimen. She is to follow-up with her primary care provider as an outpatient. Medically stable to be discharged home today.
--- NOTE | 2016-04-12 05:36 | NUR ---
AT 0530 PT BP WAS 170/90, HR 69. LUCY JENKINS MD, AMLODIPINE PO ORDERED. MED GIVEN, WILL RECHECK BP.
[2016-04-12 06:39] VITALS: BP 150/80
[2016-04-12] MEDS ORDERED: IMODIUM A-D2 M1 PO ×2 (08:18→10:51)
[2016-04-12] MEDS ORDERED: GABAPENTIN100 M2 PO (10:48)
[2016-04-12] MEDS ORDERED: GUAIFENESIN ER600 MG PO (10:48)
[2016-04-12] MEDS ORDERED: AMLODIPINE BESYL5 M1 PO (10:48)
--- NOTE | 2016-04-12 10:54 | Patient Discharge Instructions ---
Discharge Instructions General Discharge Information You were seen/treated for: Hyponatremia COPD exacerbation Special Instructions: Please follow up with Dr. Langford (primary care), Dr. Piña (surgeon) and Dr. Marc (lung doctor) within a week of discharge. Acute Coronary Syndrome Inclusion Criteria At DC or during hospital stay patient has or had the following: ACS DIAGNOSIS No Discharge Core Measures Meds if any: Prescribed or Continued at Discharge Meds if any: NOT Prescribed or Continued at Discharge Congestive Heart Failure Inclusion Criteria At DC or during hospital stay patient has or had the following: CHF DIAGNOSIS No Discharge Core Measures Meds if any: Prescribed or Continued at Discharge Meds if any: NOT Prescribed or Continued at Discharge Cerebrovascular accident Inclusion Criteria At DC or during hospital stay patient has or had the following: CVA/TIA Diagnosis No Discharge Core Measures Meds if any: Prescribed or Continued at Discharge Meds if any: NOT Prescribed or Continued at Discharge Venous thromboembolism Inclusion Criteria VTE Diagnosis No VTE Type NONE VTE Confirmed by (Test) NONE Discharge Core Measures - Per Current guidelines, there needs to be overlap - treatment for the first 5 days of Warfarin therapy. - If discharged on Warfarin prior to 5 days of - overlap therapy, the patient will need to be - assessed for post discharge needs including - *Post discharge parental anticoagulation - *Warfarin and/or parental anticoagulation education - *Follow up date to check INR post discharge At least 5 days overlap therapy as Inpatient No Meds if any: Prescribed or Continued at Discharge Note: Overlap Therapy is Warfarin and Anticoagulant Meds if any: NOT Prescribed or Continued at Discharge
[2016-04-12] MEDS ORDERED: SYMBICORT 16010.2 GM INH (11:03)
[2016-04-12 11:09] VITALS: BP 150/80
--- NOTE | 2016-04-12 13:38 | Discharge Summary ---
Visit Information Visit Dates Admission Date: 04/11/16 Discharge Date: 04/12/16 Hospital Course Course Attending Physician: BIN ADAMS MD Primary Care Physician: RUY ROJAS MD Hospital Course: 75-year-old female with past medical history significant for COPD, pulmonary embolus twice, hypertension, hyperlipidemia, GERD, colon cancer, small bowel obstruction (status post colectomy twice in 02/2014, 04/2015) who presented with progressively worsening shortness of breath, most likely secondary to COPD exaerbation. In addition, patient was found to be hyponatremic on admission, further warranting an admission to general medicine floor. # COPD exacerbation Patient came in with a cheif complaint of worsening dyspnea on exertion with nonproductive cough for 1 day. This was attributed to a COPD exacerbation given her h/o COPD and wheezes heard on the lung exam on admission. Patient was kept on Spiriva, Symbicort, Proventil and Mucinex. Her respiratory symptoms improved subsequently. She did not show any signs of infection during the hospital stay and thus did not require any antibiotics thearpy. Patient was given a referral to follow up with a biofuels production associate after discharge. # Hypovolemic hyponatremia Most likely 2/2 dehydration in the setting of diarrhea and recent thiazide use. Patient's sodium level on admission was found to be 121. Patient was started on IV resuscitation with NS. Repeat BEP showed an improvement in sodium to 129 and then 140. We discontinued thiazide permanently and started her on Norvasc 5mg PO daily instead. # History of colon cancer s/p colectomy CT abdomen and pelvis was remarkable only for bilateral penetration through the incision without any herniation. 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 Patient was started and discharged on Imodium 2mg PO Q6P after diarrhea. She was instructed to follow up with her colorectal surgeon Dr. Piña. # H/o pulmonary embolus Patient carries a history of pulmonary embolus twice in the past. On this admission CTA is unremarkable with d-dimer level of 1042. Patient remained hemodynmically stable with imrovements in her dyspnea and without any chest pain /discomfort during the hospitalization. # History of hypertension Patient has recently been started on hydrochlorothiazide/triamterene by PCP. This has been held and replaced with Norvasc to which patient's BP responded well. We discontinued thiazide permanently and started her on Norvasc 5mg PO daily instead. Her BP was well-controlled with the new medication. # Transaminitis Patient came in with AST/ALT of 69/55. ALP normal. May be 2/2 dehydration vs. medication induced. We held her Prilosec and statin during the hospitalization. Repeat LFTs showed improvement. Allergies: Coded Allergies: amitriptyline (From ELAVIL) (RASH 07/13/15) methylprednisolone (From MEDROL) (LIP SWELLS 07/13/15) Disposition Summary Disposition Principal Diagnosis: COPD exacerbation Additional Diagnosis: Hyponatremia Discharge Disposition: home or self care Discharge Instructions General Discharge Information Code Status: Do Not Resucitate/Intubat Patient's Diet: Heart healthy Patient's Activity: As tolerated Follow-Up Instructions/Appts: Please follow up with Dr. Langford (primary care), Dr. Piña (surgeon) and Dr. Marc (lung doctor) within a week of discharge. Medications at Discharge Discharge Medications: Stop taking the following medications: Diphenoxylate HCl/Atropine (Lomotil 2.5-0.025 MG Tablet) 1 EACH TABLET ORAL 3 TIMES DAILY BEFORE MEALS Triamterene/Hydrochlorothiazid (Triamterene-Hctz 37.5-25 MG Tb) 37.5 MG-25 MG TABLET ORAL DAILY Continue taking these medications: Atorvastatin Calcium (Atorvastatin Calcium) 10 MG TABLET 0.5 Tablet ORAL Every Morning Qty = 45 Comments: PREVIOUSLY NOTED 10MG DAILY Last Taken: NOT GIVEN IN HOSPITAL Time:PER PT Pantoprazole Sodium (Pantoprazole Sodium) 40 MG TABLET.DR 1 Tablet ORAL Every Morning Qty = 90 Comments: Last Taken: NOT GIVEN Time:PER PT IV PROTONIX GIVEN AT NIGHT TIME. Tiotropium Maysel (Spiriva) 18 MCG CAP.W.DEV 1 Capsule Inhale through mouth DAILY Qty = 90 Comments: Last Taken: 04/12 Time: 1100 Albuterol Sulfate (Ventolin Hfa) 18 GM HFA.AER.AD 2 Puff Inhale through mouth as needed for COPD Qty = 54 Comments: Last Taken: NOT GIVEN IN HOSPITAL Time:PER PT Budesonide/Formoterol Fumarate (Symbicort 160-4.5 Mcg Inhaler) 10.2 GM HFA.AER.AD 2 Puff Inhale through mouth TWICE DAILY Days = 30 This prescription has been renewed Start taking the following new medications: Amlodipine Besylate (Amlodipine Besylate) 5 MG TABLET 5 Milligram ORAL DAILY Days = 30 No Refills Gabapentin (Gabapentin) 100 MG CAPSULE 100 Milligram ORAL EVERY 8 HOURS Days = 14 No Refills Comments: TAKEN 04/12 AT 11AM Guaifenesin (Guaifenesin ER) 600 MG TAB.ER.12H 600 Milligram ORAL Every 12 hours as needed as needed for COUGH Days = 7 No Refills Comments: TAKEN 04/12 AT 11AM The following medications have been changed: Old: Loperamide HCl (Imodium A-D) 2 MG TABLET 2 Milligram ORAL DAILY NEEDED as needed for DIARRHEA New: Loperamide HCl (Imodium A-D) 2 MG TABLET 2 Milligram ORAL EVERY SIX HOURS NEEDED as needed for DIARRHEA Days = 14 Instructions: TAKE IT AFTER DIARRHEA. DO NOT TAKE MORE THAN 4 TIMES A DAY. Copies To: IRA SMALL DO,THIEN Bose; NESSA CHUN,HILDA SNegrita; JUAN M CHUN,RUY Welch MD Review Statement Documenting Attending: DARSHAN ARREOLA M.D Other Findings: I have reviewed the discharge summary
== END 2016-04-12 12:20 | DRG 191 ==
LOC: CANRESERV → ENRESERVTM → ENRESERVDT → ERH 19:21 → ERHI 04-11 01:04 → 2NA 04-11 01:04 → ENPENDDIS 04-11 01:04 → 2NA 04-11 02:42
PROVIDERS: Emergency Medicine; Internal Medicine; ADMIT Internal Medicine
DX: J44.1 Chronic obstructive pulmonary disease with (acute) exacerbation (principal); E87.1 Hypo-osmolality and hyponatremia; E87.2 Acidosis; E86.0 Dehydration; R74.0 Nonspecific elevation of levels of transaminase and lactic acid dehydrogenase [LDH]; Z85.038 Personal history of other malignant neoplasm of large intestine; Z86.711 Personal history of pulmonary embolism; I10 Essential (primary) hypertension
CPT/HCPCS: 2NASP; 84133; 84300; 36415; 74176; 81001; 82436; 82570; 93005; 93010; 96374; 96375; 97001-GP; 97116-GO; J1644; J1650; J3490